=== PATIENT | male | born 2000 | race Caucasian/White ===

== ENCOUNTER 2020-03-31 10:48 | Emergency (ER) | payer BC ==
[2020-03-31] MEDS ORDERED: Tetracaine HCl/PF 0.5% 4 ML Bottle EYELF ONE (10:58)
--- NOTE | 2020-03-31 11:04 | EDM.PDOC ---
ED HPI GENERAL MEDICAL PROBLEM - General Chief Complaint: Eye Problems Stated Complaint: WOODCHIP IN EYE Time Seen by Provider: 03/31/20 10:54 Source of Information: Reports: Patient History Limitations: Reports: No Limitations - History of Present Illness INITIAL COMMENTS - FREE TEXT/NARRATIVE: 19-year-old male presents with with woodchip to the left eye just prior to arrival. He was using a wood saw with no eye protection and he felt a piece of chip flew into his eye. He feels a foreign body sensation to his left eye. He denies blurry vision. He denies contact lens use. He admits to irritation to his left eye. ROS: A 10-point review of systems, other than pertinent positives and negatives as stated per HPI, is otherwise negative Past medical history: No additional pertinent history Past Surgical history: No additional pertinent history Social history: No additional pertinent history Family history: No additional pertinent history PHYSICAL EXAM General: AOx4, GCS = 15, No distress HEENT: dry mucous membrane, no obvious foreign body noted on external exam. 20/20 OD/OS/OU, left eye injected conjunctiva. No teardrop sign, no Carla sign, corneal uptake at 9 o'clock position in the left eye. Neck: supple, no meningismus, no Kernig or Brudzinski Cardiac: S1S2 RRR Respiratory: CTAB, no crackles or rales, no wheezing Abdomen: Soft, nontender, no rebound or guarding, nondistended, no pulsatile mass. Back: nontender Musculoskeletal: NVI distally, no deformity Neuro: No focal deficits, CN 2 - 12 WNL. - Related Data Allergies Allergy/AdvReac Type Severity Reaction Status Date / Time pineapple Allergy Nausea and Verified 03/31/20 10:58 Vomiting Home Meds: Home Meds Erythromycin Base [Erythromycin 0.5% Ophth Oint] 1 applic EYELF BID #1 tube 03/31/20 [Rx] ED ROS GENERAL - Review of Systems Review Of Systems: See Below (see dictation) ED EXAM GENERAL W FULL EYE - Physical Exam Exam: See Below (see dictation) ED EYE w/ Add Procedure - Eye Procedure Alcaine Drops Administered: Yes Eye Irrigated w/ Saline (ccs): 250 (Utilizing Konrad's lens.) Course - Vital Signs Last Recorded V/S: Last Vital Signs Temp 97.6 F 03/31/20 10:58 Pulse 81 03/31/20 10:58 Resp 16 03/31/20 10:58 BP 104/70 03/31/20 10:58 Pulse Ox 99 03/31/20 10:58 - Orders/Labs/Meds Orders: Active Orders 24 hr Category Date Time Status Communication Order [RC] STAT Care 03/31/20 11:04 Active Eye Irrigation [RC] ASDIRECTED Care 03/31/20 10:58 Active Vision Test [RC] ASDIRECTED Care 03/31/20 10:58 Active Meds: Medications Discontinued Medications Generic Name Dose Route Start Last Admin Trade Name Freq PRN Reason Stop Dose Admin Tetracaine HCl 3 ml 03/31/20 10:58 03/31/20 11:09 Tetracaine 0.5% Steri-Unit Vicki EYELF 03/31/20 10:59 1 dose ASDIRECTED ONE Administration - Re-Assessments/Exams Free Text/Narrative Re-Assessment/Exam: 03/31/20 11:45 After NS irrigation with Konrad's lens, the foreign body flushed out into the basin, he feels much improved. He is currently stable for discharge. I performed a repeat exam and did not appreciate new abnormal findings. Patient exhibits normal vital signs and has a normal gait on road test. I advised the patient to return to the ER for reevaluation if symptoms worsened, including fever, worsening pain, or any other worrisome symptoms. I instructed the patient to follow up with their PCP within 2-3 days. MEDICAL DECISION MAKING: I reviewed the patients past medical records, lab and radiographic findings. I discussed the case with the patient. My differential diagnosis included: Abrasion, corneal ulcer, foreign body. Foreign body was removed after Konrad's lens irrigation. Fluorescein stain demonstrated uptake at 9 o'clock position with no Carla sign, no teardrop pupil to suggest for corneal perforation. His tetanus is up-to-date, he does not wear contact lens. Departure - Departure Time of Disposition: 11:44 Disposition: Home, Self-Care 01 Condition: Good Clinical Impression: Corneal abrasion, Eye foreign body - Discharge Information *PRESCRIPTION DRUG MONITORING PROGRAM REVIEWED*: Not Applicable *COPY OF PRESCRIPTION DRUG MONITORING REPORT IN PATIENT CLAUDINE: Not Applicable Prescriptions: Erythromycin Base [Erythromycin 0.5% Ophth Oint] 1 applic EYELF BID #1 tube Instructions: Eye Foreign Body, [id number], Corneal Abrasion Referrals: Sherif Roberto MD [Primary Care Provider] - 1 Week Forms: ED Department Discharge Additional Instructions: The need for follow-up, as well as the timing and circumstances, are variable depending upon the specifics of your emergency department visit. If you don't have a primary care physician on staff, we will provide you with a referral. We always advise you to contact your personal physician following an emergency department visit to inform them of the circumstance of the visit and for follow-up with them and/or the need for any referrals to a consulting specialist. The emergency department will also refer you to a specialist when appropriate. This referral assures that you have the opportunity for follow-up care with a specialist. All of these measure are taken in an effort to provide you with optimal care, which includes your follow-up. Under all circumstances we always encourage you to contact your private physician who remains a resource for coordinating your care. When calling for follow-up care, please make the office aware that this follow-up is from your recent emergency room visit. If for any reason you are refused follow-up, please contact the [facility] Emergency Department at and asked to speak to the emergency department charge nurse. If you do not have a primary care doctor, please follow up with the clinics below within 3-5 days. Thalia Margi [facility] - [facility] [address] [place] [id number] [facility] [address] [place] [address] Sepsis Event Note (ED) - Evaluation Sepsis Screening Result: No Definite Risk - Focused Exam Vital Signs: Vital Signs Temp Pulse Resp BP Pulse Ox 03/31/20 10:58 97.6 F 81 16 104/70 99 - My Orders Last 24 Hours: My Active Orders 03/31/20 10:58 Eye Irrigation [RC] ASDIRECTED Vision Test [RC] ASDIRECTED 03/31/20 11:04 Communication Order [RC] STAT - Assessment/Plan Last 24 Hours: My Active Orders 03/31/20 10:58 Eye Irrigation [RC] ASDIRECTED Vision Test [RC] ASDIRECTED 03/31/20 11:04 Communication Order [RC] STAT
[2020-03-31 14:57] VITALS: BP 119/57; PULSE 74
== END 2020-03-31 12:04 | disposition home or self-care (01) ==
LOC: MW.ED 10:48
DX: T15.02XA Foreign body in cornea, left eye, initial encounter (principal); Z91.018 Allergy to other foods
CPT/HCPCS: 65205; 65220; 99282; 99283-25

== ENCOUNTER 2022-10-26 02:15 | Emergency (ER) | payer OTHER, BC ==
[2022-10-26] MEDS ORDERED: Sodium Chloride 0.9% 1,000 ML IV ONE (02:17)
[2022-10-26] MEDS ORDERED: Sodium Chloride 0.9% 2.5 ML Syringe FLUSH PRN (02:17)
[2022-10-26] MEDS ORDERED: Sodium Chloride 0.9% 10 ML Syringe FLUSH PRN (02:17)
[2022-10-26] MEDS ORDERED: Iopamidol 755 MG/ML 500 ML Multipack Bottle IVPUSH ONE (02:24)
[2022-10-26 02:26] LABS: BASOPHILS ABSOLUTE AUTO 0.1 K/uL (0.0-0.1); BASOPHILS PERCENT AUTO 0.6 % (0.0-1.5); EOSINOPHILS ABSOLUTE AUTO 0.1 K/uL (0.0-0.7); EOSINOPHILS PERCENT AUTO 0.6 % (0.0-7.0); HEMATOCRIT 44.7 % (38.0-50.0); HEMOGLOBIN 16.1 g/dL (13.0-17.0); LYMPHOCYTES ABSOLUTE AUTO 3.4 K/uL (0.6-2.4); MEAN CORPUSCULAR HEMOGLOBIN 31.9 pg (27.0-32.0); MEAN CORPUSCULAR VOLUME 88.5 fL (80.0-98.0); MONOCYTES ABSOLUTE AUTO 0.5 K/uL (0.0-0.8); MONOCYTES PERCENT AUTO 6.6 % (0.0-15.0); NEUTROPHILS ABSOLUTE AUTO 4.2 K/uL (1.4-5.7); NEUTROPHILS PERCENT AUTO 51.2 % (48.0-80.0); NRBC ABSOLUTE 0 K/uL; PLATELET COUNT,PLT 253 K/uL (150-400); RED BLOOD CELL COUNT 5.05 M/uL (4.50-5.90); WHITE BLOOD CELL COUNT,WBC 8.19 K/uL (4.0-11.0)
[2022-10-26 02:37] LABS: APPEARANCE,URINE CLEAR; BILIRUBIN,URINE NEGATIVE (NEGATIVE); COLOR,URINE YELLOW; GLUCOSE,URINE NEGATIVE (NEGATIVE); KETONES,URINE NEGATIVE (NEGATIVE); LEUKOCYTE ESTERASE,URINE NEGATIVE (NEGATIVE); NITRITE,URINE NEGATIVE (NEGATIVE); OCCULT BLOOD,URINE TRACE-INTACT (NEGATIVE); PH,URINE 5.5 (5.0-8.0); PROTEIN,URINE NEGATIVE (NEGATIVE); UROBILINOGEN,URINE 0.2 EU/dL (<2.0)
[2022-10-26 02:44] LABS: BACTERIA,URINE FEW (NEGATIVE); EPITHELIAL CELLS,URINE RARE (NONE-FEW); RBC,URINE 0-2 (0-2/HPF); WBC,URINE 0-2 (0-5/HPF)
[2022-10-26 02:46] LABS: AMPHETAMINES SCREEN, URINE NEGATIVE (CUTOFF=500); BARBITURATE SCREEN,URINE NEGATIVE (CUTOFF=200); BENZODIAZEPINES SCREEN,URINE NEGATIVE (CUTOFF=150); BUPRENORPHINE SCREEN,URINE NEGATIVE (CUTOFF=10); METHADONE SCREEN, URINE NEGATIVE (CUTOFF=200); METHAMPHETAMINES SCREEN, URINE NEGATIVE (CUTOFF=500); OXYCODONE SCREEN,URINE NEGATIVE (CUT0FF=100); PCP SCREEN,URINE NEGATIVE (CUTOFF=25); PROPOXYPHENE SCREEN,URINE NEGATIVE (CUTOFF=300); THC SCREEN,URINE 20 NG/ML NEGATIVE (CUTOFF=50)
[2022-10-26 02:52] LABS: A/G RATIO 1.2 (0.9-1.6); ALBUMIN 4.1 g/dL (3.4-5.0); BILIRUBIN TOTAL 0.3 mg/dL (0.2-1.0); CALCIUM 8.2 mg/dL (8.5-10.1); CARBON DIOXIDE,CO2 22.7 mmol/L (21.0-32.0); CREATININE 1.1 mg/dL (0.8-1.3); EST CRCL DRUG DOSING (CG) 104.44 mL/min; POTASSIUM,K 3.3 mmol/L (3.5-5.1); PROTEIN TOTAL,TP 7.6 g/dL (6.4-8.2)
[2022-10-26] MEDS ORDERED: Ibuprofen 600 MG Tab PO ONE (04:07)
[2022-10-26] MEDS ORDERED: Bacitracin Oint 1 GM U/D Packet TOP ONE (04:07)
[2022-10-26 05:41] VITALS: BP 121/73; PULSE 89
== END 2022-10-26 05:05 ==
LOC: MW.ED 02:15
DX: S62.501A Fracture of unspecified phalanx of right thumb, initial encounter for closed fracture (principal); S32.009A Unspecified fracture of unspecified lumbar vertebra, initial encounter for closed fracture; V89.2XXA Person injured in unspecified motor-vehicle accident, traffic, initial encounter; Y92.410 Unspecified street and highway as the place of occurrence of the external cause; Z91.018 Allergy to other foods
CPT/HCPCS: 29125; 36415; 70450; 70486; 71260; 72125; 72128; 72131; 73130; 74177; 80053; 80305; 80307; 81001; 85025; 99284; A9270; J3490; J7030; Q9967; 99285